=== PATIENT | female | born 1930 | race Caucasian/White ===

== ENCOUNTER → 2016-02-09 | Outpatient (CLI) | payer BC ==
[~2016-02-09] MED LIST: ACET-1256 PO; ASPI-232 PO; BLOOD SUGAR CHECK; CHOL1TAB42 PO; CITA40TA4 PO; DONE1TAB11 PO; DONE5TAB9 PO; FRS/40 PO; GLIP10TA3 PO; LISI-461 PO; LORA-741 PO; METO2.5T PO; NYSP EXT; POLY335019 PO; POTA10TA PO; POTA20TA16 PO; PROP20TA66 PO; SIMV40TA2 PO; SPIR25TA PO; SYN100 PO
[2016-02-09 12:29] LABS: BLOOD UREA NITROGEN 42 mg/dl (7-18); BUN/CREATININE RATIO 23.5 (10-20); CALCIUM 9.1 mg/dl (8.5-10.1); CARBON DIOXIDE 33 mmol/L (21-32); CHLORIDE 96 mmol/L (98-107); GLUCOSE 308 mg/dl (70-99); SODIUM 139 mmol/L (136-145)
== END | disposition home or self-care (01) ==
LOC: C.LABCC 11:38
PROVIDERS: ATTEND Internal Medicine
DX: R60.9 Edema, unspecified (principal)

== ENCOUNTER → 2016-02-14 | Outpatient (CLI) | payer BC ==
[2016-02-14 08:48] LABS: BLOOD UREA NITROGEN 70 mg/dl (7-18); BUN/CREATININE RATIO 35.1 (10-20); CALCIUM 8.7 mg/dl (8.5-10.1); CARBON DIOXIDE 31 mmol/L (21-32); CHLORIDE 99 mmol/L (98-107); GLUCOSE 180 mg/dl (70-99); POTASSIUM 4.1 mmol/L (3.5-5.1); SODIUM 140 mmol/L (136-145)
== END ==
LOC: C.LABCC 07:59
PROVIDERS: ATTEND Internal Medicine
DX: R60.9 Edema, unspecified (principal)